=== PATIENT | female | born 1950 | race Caucasian/White ===

== ENCOUNTER 2024-06-21 07:57 | Day surgery (SDC) | payer OTHER ==
[2024-06-21 09:06] LABS: Absolute Basophils 0.1 K/uL (0-0.5); Absolute Eosinophils 0.4 K/uL (0-0.5); Absolute Lymphocytes (CBC) 1.7 K/uL (0.7-4.9); Absolute Monocytes 0.6 K/uL (0.1-1.3); Absolute Neutrophil 6.6 K/uL (1.8-8.0); Basophils % 0.6 % (0-1.3); Eosinophils % 3.9 % (0-4.4); Hematocrit 36.8 % (36.0-45.0); Hemoglobin 12.4 g/dL (12.0-15.0); Lymphocytes % 18.1 % (15.3-44.8); MCH 28.8 pg (27.0-35.0); MCHC 33.7 g/dL (32.0-36.0); MCV 85.2 fL (80-100); MPV 8.2 fL (7.6-11.3); Monocytes % 6.8 % (3.3-12.3); Neutrophils % 70.6 % (41.7-73.7); Platelets 313 thou/uL (152-406); RBC Red Blood Cell Count 4.31 M/uL (3.86-4.86); Red Cell Distribution Width 13.1 % (12.1-15.2)
[2024-06-21 09:12] LABS: PT Prothrombin Time 10.8 SECONDS (9.4-12.5); Protime INR 0.96
[2024-06-21 09:24] LABS: Anion Gap 7.5 mEq/L (5.0-15.0); Potassium 3.5 mEq/L (3.5-5.1)
--- NOTE | 2024-06-21 12:05 | RAD REPORT ---
PROCEDURE: FLUOROSCOPICALLY GUIDED LUMBAR PUNCTURE CLINICAL INDICATION: Unspecified dementia Female, 74 years old. UNSP DEMENTIA, UNSPECIFIED SEVERITY PROCEDURE DETAILS: Consent: Informed consent for the procedure including risks, benefits and alternatives was obtained a nd time-out was performed prior to the procedure. Preparation: The site was prepared and draped using all elements of maximal sterile barrier technique including sterile gloves, sterile gown, cap, mask, large sterile sheet, sterile cover as needed, hand hygiene and cutaneous antisepsis with 2% chlorhexidine. . Imaging prior to procedure: 2 views lumbar spine were performed. Utilizing aseptic technique, patient was placed prone on the fluoroscopy table. Following uneventful administration of local anesthetic, a spinal needle was used to access the subarachnoid space at the L2-3 level. Approximately 12 cc of clear CSF were obtained. All obtained fluid was sent for requested lab studies . Estimated blood loss: Less than 10 mL. COMPLICATIONS: No immediate complications. Fluoroscopy time 1.1 minutes IMPRESSION: Technically successful fluoroscopically guided lumbar puncture as detailed.
[2024-06-21 13:35] LABS: CSF Glucose 82 mg/dL (40-70)
[2024-06-21 13:44] LABS: Fluid Total Volume 12 ml
[2024-06-21 13:46] LABS: Tube # #4
[2024-06-21 13:47] LABS: Appearance CLEAR (CLEAR); Body Fluid Source CSF; Color of Supernate Not Xanthochromic (Not Xantho); Color of fluid Colorless (COLORLESS)
[2024-06-21 13:48] LABS: Body Fluid WBC 1 /mm^3
[2024-06-21 14:39] VITALS: BMI 27.3
[2024-06-21 14:43] VITALS: BP 129/51; TEMP 97; O2SAT 98
== END 2024-06-21 13:37 | disposition home or self-care (01) ==
LOC: RAD 07:57 → DS 13:37
PROVIDERS: ATTEND Psychiatry & Neurology Neurology with Special Qualifications in Child Neurology
PROC: 009U3ZX Drainage of Spinal Canal, Percutaneous Approach, Diagnostic (ICD-10-PCS; principal; 2024-06-21)
PROC: B01BZZZ Fluoroscopy of Spinal Cord (ICD-10-PCS; 2024-06-21)
DX: F03.90 Unspecified dementia, unspecified severity, without behavioral disturbance, psychotic disturbance, mood disturbance, and anxiety (principal); I10 Essential (primary) hypertension; E11.9 Type 2 diabetes mellitus without complications; M19.90 Unspecified osteoarthritis, unspecified site; E78.5 Hyperlipidemia, unspecified
CPT/HCPCS: 36415; 62328; 77003; 80048; 82542; 82945; 82947; 84157; 85025; 85610; 85730; 89050